=== PATIENT | male | born 1985 | race Caucasian/White ===

== ENCOUNTER 2020-07-05 16:00 | Outpatient (REF) | payer OTHER, SELFPAY ==
--- NOTE | ~2020-07-05 | XR_ITS ---
EXAMINATION: XR HAND, RIGHT CLINICAL INFORMATION: Right hand pain COMPARISON: None TECHNIQUE: PA, lateral, and oblique views of the right hand. FINDINGS: There is no evidence of acute fracture, dislocation, or bony erosions of the right hand. Right hand joint spaces are maintained. Metallic foreign body is seen about the ulnar aspect of the third proximal phalanx which may be postoperative in nature. There is some mild deformity of the right fifth metacarpal with the appearance of previous healed fracture. XR/XR hand RT min 3V IMPRESSION: No acute bony abnormality of the right hand identified.
== END 2020-07-05 16:01 | disposition home or self-care (01) ==
LOC: HO.HOSX 16:00
PROVIDERS: Visit Provider Orthopaedic Surgery
DX: M79.641 Pain in right hand (principal)
CPT/HCPCS: 73130

== ENCOUNTER → 2020-07-06 12:31 | Outpatient (BNVA) | payer OTHER, SELFPAY | PROVIDERS: Visit Provider Orthopaedic Surgery | DX: S56.129A Laceration of flexor muscle, fascia and tendon of unspecified finger at forearm level, initial encounter (principal); S61.209A Unspecified open wound of unspecified finger without damage to nail, initial encounter; S61.411A Laceration without foreign body of right hand, initial encounter; L08.9 Local infection of the skin and subcutaneous tissue, unspecified | CPT/HCPCS: 99202 ==

== ENCOUNTER 2020-07-07 08:54 | Day surgery (SDC) | payer OTHER, SELFPAY ==
[2020-07-07] VITALS (7 sets, daily range): BP systolic 113–128; BP diastolic 61–76; PULSE 57–73; RESP 16–20; TEMP 36.2–36.7; O2SAT 96–100; BMI 29.9
--- NOTE | 2020-07-07 09:56 | P.CONAN_ITS ---
[facility] Active Problems Active Problems: All Active Problems (Updated 07/06/20 @ 13:41 by Deborah culver MD) Flexor tendon laceration of finger with open wound (Acute) Laceration of right hand with infection (Acute) Past Medical History Medical History Smoker Surgical History Surgical History No history of previous surgery Social History Social History Smoking Status: Current some day smoker Smoked in Last 30 Days: No Use of substances other than those prescribed or required for medical reasons: Yes Advance Directives: No Advance Directives Information Provided: Yes Advance Directives on File: No Current occupational status: employed Current occupation: tow truck transporter/rt hand Meds Allergies Allergy/AdvReac Type Severity Reaction Status Date / Time No Known Allergies Allergy Verified 07/07/20 09:08 Active Medications: Current Medications Generic Name Dose Route Start Last Admin Trade Name Freq PRN Reason Stop Dose Admin Cefazolin Sodium/Dextrose 2 gm in 50 mls @ 100 mls/hr 07/07/20 09:32 Ancef IV 07/07/20 10:01 PREOP ONE Home Medications Medication Instructions Recorded Confirmed Last Taken Type sulfamethoxazole 400 1 tab PO BEDTIME 07/06/20 Unknown History mg-trimethoprim 80 mg tablet Exam Exam Date and Time: July 07, 2020 0956 Height,Weight and Vital Signs: Height 5 ft 11 in Weight 97.522 kg Last Vital Signs Temp 98.0 F 07/07/20 09:12 Pulse 60 07/07/20 09:12 Resp 16 07/07/20 09:12 BP 115/65 07/07/20 09:12 Pulse Ox 98 07/07/20 09:12 Airway Mallampati Class: II TM Dist: >3cm Neck ROM: Full Heart: RRR Lungs: CTA
--- NOTE | 2020-07-07 11:11 | MHC.SHP ---
Pre-Procedural Eval Section B Chief Complaint: laceration of small right finer Allergies: Allergies Allergy/AdvReac Type Severity Reaction Status Date / Time No Known Allergies Allergy Verified 07/07/20 09:08 Plan I have reviewed the history and physical and performed a pertinent physical examination on my patient. No changes have occurred unless specified.
--- NOTE | 2020-07-07 11:11 | W.PM.OPN ---
Operative Note Operative Note Date of Service: 07/07/20 Narrative: Operative Note Narrative: Preop diagnosis: 1. Right small finger FDP tendon laceration 2. Right small finger partial FDS tendon laceration 3. Right hand infection, resolving Postop diagnosis: 1. Right small finger FDP tendon laceration 2. Right hand infection, resolving Procedure: 1. Right small finger zone 2 FDP tendon repair 2. Right small finger flexor tendon sheath culture and I&D Surgeon: Deborah Ndiaye MD Anesthesia: Mac plus regional block Findings: Serosanguineous fluid in area of injury, no gross purulence. FDP tendon laceration zone 2, beneath A4 mary ellen. FDS tendon found to be intact Ulnar and radial digital nerves found to be intact. Implants: None Tourniquet time: 84 minutes EBL: 5.0 ml Specimen: Cultures taken from wound site Drains: None Complications: None Disposition: Brought to the recovery room in stable condition Plan: Follow-up with our OT hand therapists for a custom dorsal blocking splint and to begin the flexor tendon protocol. Follow-up in 10-14 days for wound check and suture removal. Check cultures Patient to remain in dorsal blocking splint for approximately 6 weeks while working with OT on flexor tendon hand therapy protocol Indications: The patient is 35 years old with a laceration over the volar aspect of the right small finger after trying to bring in a large fish by grabbing it by the Sheets so it sustaining a laceration. Clinical examination was worrisome for FDP and at least partial FDS tendon lacerations. He also had a history of a hand infection following this injury that is improving on Bactrim. . The risks and benefits of operative treatment, including but not limited to risk of damage to blood vessels, nerves, tendons, infection, recurrence, persistent pain or numbness, incomplete resolution of preoperative symptoms, or need for further surgery were discussed with the patient and they wished to proceed with surgery. Procedure: Once consent was obtained patient was brought back to the operating suite and placed in the operating table in a supine position. A regional block was performed by the anesthesia team. Perioperative antibiotics and anesthesia was administered by the anesthesia team. A tourniquet was applied to the proximal aspect of the right upper extremity and the limb was prepped and draped in a standard surgical fashion. The limb was elevated exsanguinated with Esmarch bandage and the tourniquet inflated to 250 mm of mercury for a total tourniquet time of 84 minutes. A Faiza is a type incision was made over the volar aspect of the patient's right small finger extending from the A1 mary ellen to the distal phalanx, incorporating the laceration. The incision was made through the skin to the subcutaneous tissues using a 15. Blade. Careful dissection was made down to the level of the flexor tendon sheath with care being taken to protect the neurovascular structures. The laceration through the flexor tendon sheath was found in the area of the A3 mary ellen. There was some serosanguineous fluid in the zone of injury, but no gross purulence. Cultures were taken of this fluid. The A3 mary ellen was then opened longitudinally using tenotomy scissors.. Evaluation of the flexor tendon sheath and flexor tendons revealed a laceration of the FDP tendon in the area of the A4 mary ellen. The FDS tendon including both slips distally, were found to be intact.. The wound was washed out copiously using normal saline and debrided of any nonviable tissue. Our attention was 1st turned to the FDP tendon repair. The proximal end of the FDP tendon was found within the flexor tendon sheath just proximal to the A1 mary ellen. The A1 mary ellen was open to facilitate mobilization of this tendon. A grasping suture using 4-0 nylon suture material was placed in the proximal cut end of the FDP tendon. A tendon Passer and a hemostat was used to then 1st passed the suture, and then draw the proximal cut end of the FDP tendon through the A2 mary ellen. Similarly, that FDP tendon was then brought through the chiasm of the FDS tendon from deep and proximal, to superficial and distal. The hand was then flexed some at the wrist and MP joints. The FDP tendon was drawn distally and a 25 gauge needle was passed through the FDP and FDS tendons in the area of the A1 mary ellen to prevent retraction of the FDP tendon. The FDP tendon was then passed beneath the A4 mary ellen, and then grasping suture was removed from the proximal cut end of the FDP tendon. The FDP tendon was then repaired using a 4 core suture technique. This was then reinforced using some 6 0 Prolene with a running locking stitch. Traction was placed on 1st the FDS and then the FDP tendons in the area of the A1 mary ellen. We had good flexion of the small finger at the PIP joint. The repaired FDP tendon may have trouble passing through the A4 mary ellen, though we noted he had good flexion of the small finger such that the tip of the finger touch the palm with traction on the FDP tendon. At this point the tourniquet was deflated and hemostasis obtained with a brief period of local pressure and bipolar electrocautery. The wound was copiously irrigated with normal saline. The the skin edges were reapproximated with 5-0 nylon suture. The wound was infiltrated with some core% plain Marcaine for postop pain control and a sterile dressing was applied. A dorsal blocking splint was then applied holding the wrist, MCP and PIP joints in a flexed position. The patient appears to have tolerated the procedure well and with no complications. All digits were well vascularized conclusion of the case.
[2020-07-07] MEDS: Acetaminophen 325 MG TABLET 650 MG PO (14:05)
[2020-07-07] MEDS: oxyCODONE HCl Immed Release 5 MG TABLET PO (14:05)
== END 2020-07-07 15:14 | disposition home or self-care (01) ==
PROVIDERS: PCP Internal Medicine; Visit Provider Orthopaedic Surgery
PROC: (CPT 26356; principal; 2020-07-07 10:20)
DX: S66.126A Laceration of flexor muscle, fascia and tendon of right little finger at wrist and hand level, initial encounter (principal); S61.411A Laceration without foreign body of right hand, initial encounter; L08.89 Other specified local infections of the skin and subcutaneous tissue; X58.XXXA Exposure to other specified factors, initial encounter; Y93.89 Activity, other specified; Y92.89 Other specified places as the place of occurrence of the external cause; Y99.8 Other external cause status
CPT/HCPCS: 26356; 10060; 87071; 87205; J0330; J0690; J1100; J1885; J2250; J2405; J3010

== ENCOUNTER → 2020-07-18 12:21 | Outpatient (BNVA) | payer OTHER, SELFPAY | PROVIDERS: PCP Internal Medicine; Visit Provider Orthopaedic Surgery | DX: S56.121A Laceration of flexor muscle, fascia and tendon of right index finger at forearm level, initial encounter (principal); S61.201A Unspecified open wound of left index finger without damage to nail, initial encounter; S61.411A Laceration without foreign body of right hand, initial encounter; L08.9 Local infection of the skin and subcutaneous tissue, unspecified | CPT/HCPCS: 99212 ==

== ENCOUNTER → 2020-07-25 10:49 | Outpatient (BNVA) | payer OTHER, SELFPAY | PROVIDERS: PCP Internal Medicine; Visit Provider Orthopaedic Surgery | DX: S56.129A Laceration of flexor muscle, fascia and tendon of unspecified finger at forearm level, initial encounter (principal); S61.209A Unspecified open wound of unspecified finger without damage to nail, initial encounter; S61.411A Laceration without foreign body of right hand, initial encounter; L08.9 Local infection of the skin and subcutaneous tissue, unspecified | CPT/HCPCS: 99212 ==

== ENCOUNTER 2020-08-18 09:00 | Outpatient (RCR) | payer OTHER, SELFPAY ==
--- NOTE | 2020-07-12 12:08 | MHC.OT.OEV ---
[address] [phone] F: [phone] Occupational Therapy Evaluation Diagnosis: Right D5 FDP laceration and partial FDS laceration, post-op FDP repair and debridement Date of Onset: 06/29/20 Date of Surgery: 07/07/20 Attending Provider: Dr. Ndiaye Prescribed Treatment: Eval and Treat MD Follow Up Appointment: History of Current Condition: 35 yo male was on a fishing trip in [place], caught a large fish and during the process, ended up with small finger lacaration on volar middle phalanx. Was treated in [place] for infection and referred back to [facility] and found to have small finger zone II laceration of FDP and partial FDS. He is now post-op tendon repair and presents w/ dorsal blocking orthosis. Just finished full dose of oral antibiotics. 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[employer], [place] w/ daily activities Enjoys fishing Living Situation, Family and/or Social Support: Lives alone, has four year old son on the weekends Current Level of Function and Occupation Self Care, Employment, Leisure: Doing most things one-handed, modified techniques (hard to hold on to wash dishes) Sleep: Sleeping well now Driving: Drives w/ left hand Pain Assessment Pain Score: 2 Pain Scale Used: Numeric (0 - 10) Pain Location and Description: Right volar small finger, minimal pain at rest Aggravating Factors: Passive digit flexion (as assessed during therapy) Alleviating Factors: Ibuprophen 600mg/day Skin and Soft Tissue Assessment Skin and Soft Tissue: Swelling Wound Comments: Sutured surgical incision on volar aspect of right small finger, mid palm to mid distal phalanx, no signs or symptoms of infection, small amount of residual dried blood, no drainage. Nerve assessment Ulnar Nerve: Median Nerve: Radial Nerve: Comments: Not tested Sensory Assessment Temperature: WFL Light Touch: WFL Proprioception: WFL Edema Assessment Upper Extremity: Right Impaired Comments: MCP circ R 23 cm L 21.5 CM Dexterity Assessment Dexterity: Right Impaired AROM(PROM) Strength Wrist Flexion: Extension: Ulnar Deviation: Radial Deviation: Comments: Wrist positioned in neutral w/ orthosis, ROM not assessed at this time Flexion: Extension: Ulnar Deviation: Radial Deviation: Comments: NT Thumb Thumb CMC Flexion: Thumb MCP Flexion: Thumb IP Flexion: Radial Abduction: Palmar Abduction: Elma (Kapandji 0-10): Comments: Swollen, AROM intact Digits Index MCP: PIP: DIP: Long MCP: PIP: DIP: Ring MCP: PIP: DIP: Small MCP: PIP: DIP: Comments: Decreased IP ext due to edema and post-op tightness, decreased end range digit flex, will continue to assess at later. Orthosis positioning digits w/ 50 degrees MP flex, IPs neutral, but will likely take a couple treatments w/ positioning adjustments to obtain this without straining digits. Gross Grasp: Lateral Pinch: Two-Point Pinch: Three-Jaw Derian: Comments: NT Patient Education Primary Language: Albanian Manager Book Required: No Current Knowledge: Understands information with skills for self-management Teaching Method: Demonstration Verbal Education Needs Identified on Evaluation: ADL's Disease Information Equipment Use Exercise Pain Safety How did patient/family demonstrate learning? Patient demonstrates Patient verbalizes Barriers to Learning: None Readiness for Learning: Accepting Who was educated? Patient Comments: Post-op safety and precautions w/ flexor tendon repair Plan of Care Assessment: 35 yo right hand dominant male presents 5 days post-op right small finger zone II FPD laceration and FPS partial laceration w/ surgical repair of FPD. He has been in post-op splint w/ gauze, removed and surgical site assessed today in therapy, hand cleaned w/ sterile water and gauze, no signs or symptoms of infection. On assessment, he has edema in hand and digits, with decreased end range digit ext (assessed w/ MP flex) and digit flex (assessed passively in protected wrist position). We have placed in custom dorsal blocking orthosis w/ neutral wrist, MP 50 degrees and IPs neutral, but edema is somewhat limiting digits to correct position in splint, will continue to adjust hand positioning as needed. He has been educated on no active digit flexion and will keep hand and digits in protected position until follow up OT tomorrow to introduce passive flex/active extension within limits of splint, per [facility] passive motion protocol. STG Duration: 2 weeks Short Term Goals: Full passive tip-palm D5 flexion Full IP extension to dorsal block splint Good follow through w/ repair protection Good follow through w/ home program for passive digit ROM LTG Duration: 8 weeks Half-Way Goals: D/C splint (5 weeks) Progress to light resistive strengthening program Pt to demo small finger active flexion to distal palmar crease Pt to demo ease w/ use of right hand for light daily activities Frequency and Duration: The patient will be seen 2x/wk for 8 weeks Treatment Plan: Therapeutic Exercise Therapeutic Activity Home Exercise Program Splinting Patient Education Desensitization/Sensory Re-ed Edema Control ADL Training Ultrasound NMES Iontophoresis Paraffin Fluidotherapy MHP Cold Packs Joint Mobilization Soft Tissue Mobilization Kinesiotaping Modalities PRN as appropriate Electronically Signed By: Sonal Ashley OTR/L Please sign and return to therapist, Thank you for your referral.
--- NOTE | 2020-07-15 15:24 | MHC.OT.OP ---
[address] [phone] F: [phone] Occupational Therapy Progress Note Diagnosis: Right D5 FDP laceration and partial FDS laceration, post-op repair Date of Surgery: 07/07/20 Date of Evaluation: 07/12/20 Treatments to Date: 3 Subjective: I don't know if I overdid it, I've been doing my exercises every hour, I also did some gardening Pain Score: 1 Pain Location: Right small finger/palm Objective Measures: Daily Note from 07/15/20 8 days post-op right small finger zone II FPD laceration and FPS partial laceration w/ surgical repair. He is wearing custom orthosis, but does not have IP block strap on at this time, states he left it at home after putting on his jacket because the strap catches. Pt educated on importance of using all straps to keep good alignment and positioning of orthosis and for protection of repair and prevention of unintentional active flexion. Reviewed and completed exercises from HEP with passive PIP/DIP flexion and active extension to dorsal block. MCP held in full flex w/ DIP/PIP active extension. Palm and IP straps removed, pt practiced gravity assisted wrist flexion w/ active extension to dorsal block. Full orthosis removed and therapist provided active wrist flex w/ digit flex and wrist flex/digit ext (tenodesis pattern). All exercises performed 10 reps. Dressing removed and surgical site assessed again today in therapy, no signs or symptoms of infection. Cleaned w/ sterile water, sterile gauze and cotton tipped swabs. Redressed w/ xeroform and gauze. Redonned orthosis and new IP block strap added. Continued pt ed on importance of protection of repair as it is in stage of decreased tensile strength, pt receptive to education. Status: Progressing Assessment: Pt feeling more confident with passive digit flexion, feels limited due to edema and sutures. Good follow through w/ HEP but needs reminders about orthosis positioning. Good D3-D4 extension to orthosis, D5 slightly decreased extension at IPs. All digits improving passive flexion, will continue towards goal of full passive flexion. Xeroform added to dressing to limit unintentional debridement of tissues w/ removal of gauze for skin checks and cleaning. He is anxious to return to full activity, understands protocol and general healing timeline. Short Term Goals: Full passive tip-palm D5 flexion Full IP extension to dorsal block splint Good follow through w/ repair protection Good follow through w/ home program for passive digit ROM Nursing Home Goals: D/C splint (5 weeks) Progress to light resistive strengthening program Pt to demo small finger active flexion to distal palmar crease Pt to demo ease w/ use of right hand for light daily activities Frequency and Duration: The patient will be seen 2x/wk for 8 weeks Treatment Plan: Therapeutic Exercise Therapeutic Activity Home Exercise Program Splinting Patient Education Edema Control ADL Training Ultrasound NMES Iontophoresis Paraffin Fluidotherapy MHP Cold Packs Joint Mobilization Soft Tissue Mobilization Kinesiotaping Modalities PRN as appropriate Electronically Signed By: Sonal Ashley OTR/L Reviewed/agree with student documentation: N/A Therapist:
--- NOTE | 2020-08-11 09:58 | MHC.OT.OP ---
[address] [phone] F: [phone] Occupational Therapy Progress Note Diagnosis: Right D5 FDP laceration and partial FDS laceration, post-op repair Date of Surgery: 07/07/20 Date of Evaluation: 07/12/20 Treatments to Date: 9 Cancellations to Date: No Shows to Date: Subjective: It's going well, it's just not bending Pain Score: 0 Pain Location: Right small finger/palm, tightness w/ stretch Objective Measures: Wrist circ 22 cm (improved from 23.5) Wrist AROM WFL per left side Right D5 MCP 80 PIP 64 DIP 16 Left D5 MPC 88 PIP 88 DIP 74 *22 degrees R D5 PIP flex contracture Status: Progressing Assessment: 5 weeks post-op repair, orthosis cut to hand based at four weeks and now d/c'd and allowed for progression of active digit flexion and light prehensile use of hand, per [facility] protocol. Rohan is highly motivated and anxious to return to work, but cont's to have scarring and edema limiting full passive digit flex and contributing to PIP flexion contracture. He has good wrist and MCP/PIP flexion, but no active DIP flexion observed yet at this time. Short Term Goals: Full passive tip-palm D5 flexion (met) Full IP extension to dorsal block splint (met) Good follow through w/ repair protection (met) Good follow through w/ home program for passive digit ROM (met) Warble Saw Operator Goals: D/C splint (5 weeks - met) Progress to light resistive strengthening program Pt to demo small finger active flexion to distal palmar crease Pt to demo ease w/ use of right hand for light daily activities Frequency and Duration: The patient will be seen 2x/wk for 8 weeks Treatment Plan: Therapeutic Exercise Therapeutic Activity Home Exercise Program Splinting Patient Education Edema Control ADL Training Ultrasound NMES Iontophoresis Paraffin Fluidotherapy MHP Cold Packs Joint Mobilization Soft Tissue Mobilization Kinesiotaping *Continue per [facility] Protocol, initiate strengthening in three weeks. Static orthosis to small finger for PIP flex contracture Electronically Signed By: Sonal Ashley OTR/L Reviewed/agree with student documentation: N/A Therapist:
--- NOTE | 2020-08-18 09:53 | MHC.OT.OP ---
[address] [phone] F: [phone] Occupational Therapy Progress Note Diagnosis: Right D5 FDP laceration and partial FDS laceration, post-op repair Date of Surgery: 07/07/20 Date of Evaluation: 07/12/20 Treatments to Date: 11 Subjective: I'll probably go back to work next week Pain Score: 0 Pain Location: Right small finger/palm, tightness w/ stretch Objective Measures: Wrist circ 22 cm (improved from 23.5) Wrist AROM WFL per left side Right D5 MCP 80 PIP 64 DIP 16 Left D5 MPC 88 PIP 88 DIP 74 *20 degrees R D5 PIP flex contracture Status: Progressing Assessment: 6 weeks post-op repair, following [facility] protcol, splint has been d/c'd and patient working on active digit flexion. Still with slight PIP flexion contracture, wearing volar gutter at periods of time during the day, now wearing scar pad to surgical scar at night and gel during day, scar softened significantly over the past week. Slight active DIP flexion noted w/ active range. Good wrist and MCP/PIP range. He is very anxious to return to work, but I have continued to recommend only light activity w/ right hand and we will progress strengthening at 8 weeks per protocol. Short Term Goals: Full passive tip-palm D5 flexion (met) Full IP extension to dorsal block splint (met) Good follow through w/ repair protection (met) Good follow through w/ home program for passive digit ROM (met) [facility] Goals: D/C splint (5 weeks - met) Progress to light resistive strengthening program Pt to demo small finger active flexion to distal palmar crease Pt to demo ease w/ use of right hand for light daily activities Frequency and Duration: The patient will be seen 2x/wk for 4 weeks Treatment Plan: Therapeutic Exercise Therapeutic Activity Home Exercise Program Splinting Patient Education Edema Control ADL Training Ultrasound NMES Iontophoresis Paraffin Fluidotherapy MHP Cold Packs Joint Mobilization Soft Tissue Mobilization *Pt has stated he plans to return to work next week (OT has educated on possibility of tendon rupture at this stage if not careful w/ heavy use) Electronically Signed By: Sonal Ashley OTR/L Reviewed/agree with student documentation: N/A Therapist:
--- NOTE | 2020-09-20 08:19 | MHC.OT.DC ---
[address] [phone] F: [phone] Occupational Therapy Discharge Note Provider: Dr Ndiaye Diagnosis: Right D5 FDP laceration and partial FDS laceration, post-op repair Date of Surgery: 07/07/20 Date of Evaluation: 07/12/20 Date of Discharge: 09/20/20 Treatments to Date: 11 Discharge Status: Patient Elected to Stop Discharge Summary: Rohan was seen in OT post-op repair of right D5 FDP laceration and partial FDS laceration. He cont'd to have lack of FDP pull through w/ active movement and we had not yet progressed to active strengthening. He was cleared for back to work and we held chart open in case he was able to attend OT, although have not seen him for OT in about a month so at this time we will D/C patient. Thank you for your referral. Electronically Signed By: Sonal Ashley OTR/L Please Sign and return to therapist, thank you for your referral.
== END 2020-09-20 08:20 | disposition home or self-care (01) ==
LOC: HO.OT 09:00
PROVIDERS: Visit Provider Orthopaedic Surgery
DX: S56.121A Laceration of flexor muscle, fascia and tendon of right index finger at forearm level, initial encounter (principal); S61.201A Unspecified open wound of left index finger without damage to nail, initial encounter
CPT/HCPCS: 29125; 29130; 97110; 97140; 97166; 97760

== ENCOUNTER → 2020-08-22 08:49 | Outpatient (BNVA) | payer OTHER, SELFPAY | PROVIDERS: PCP Internal Medicine; Visit Provider Orthopaedic Surgery | DX: S56.127D Laceration of flexor muscle, fascia and tendon of right little finger at forearm level, subsequent encounter (principal) | CPT/HCPCS: 99212 ==